=== PATIENT | female | born 1955 | race Caucasian/White ===

== ENCOUNTER 2017-01-20 08:17 | Day surgery (SDC) | payer BC ==
[2017-01-16 18:37] VITALS: BMI 26.6
[2017-01-20] MEDS ORDERED: oxyCODONE HCL 5 MG TABLET PO PRN (11:08)
[2017-01-20] MEDS ORDERED: ONDANSETRON 4 MG/2 ML VIAL IVPUSH PRN (11:08)
[2017-01-20] MEDS ORDERED: PROMETHAZINE HCL 25 MG/1 ML VIAL IVPUSH PRN (11:08)
[2017-01-20] MEDS ORDERED: MIDAZOLAM HCL 2 MG/2 ML SINGLE DOSE VIAL ONE ×3 (11:13→11:26)
[2017-01-20] MEDS ORDERED: LACTATED RINGERS SOLUTION 1,000 ML IV SCH (11:15)
[2017-01-20] MEDS ORDERED: LEVOFLOXACIN 500 MG PREMIX BAG IVPB ONE (11:22)
[2017-01-20] MEDS ORDERED: DEXAMETHASONE SOD PHOSPHATE 4 MG/1 ML VIAL ONE (11:24)
--- NOTE | 2017-01-20 12:25 | OP ---
Operative Note - Note: Pre-Operative Diagnosis: right renal stones Operation: right eswl Findings: 5mm upper pole; 5mm mid-pole; 7mm lower pole stones Post-Operative Diagnosis: Same as Pre-op Surgeon: Michael Bess Anesthesia: General Operative Report Dictated: Yes
[2017-01-20 12:54] VITALS: TEMP 98.2
[2017-01-20 15:06] VITALS: BP 140/77; PULSE 70
--- NOTE | 2017-01-21 00:52 | OP ---
DATE OF OPERATION: 01/20/2017 PREOPERATIVE DIAGNOSIS: Right renal stone. POSTOPERATIVE DIAGNOSIS: Right renal stone. PROCEDURE: Extracorporeal shock wave lithotripsy. ATTENDING SURGEON: Lan Bess M.D. ANESTHESIA: General. OPERATION: Patient was brought in the operating room, placed in a supine position on the operating room table. Ultrasonography and fluoroscopy were performed. A 5-mm upper, 5-mm mid, and 7-mm lower pole stones were localized in the right kidney. Patient was then given antibiotics and general anesthesia. Extracorporeal shock wave lithotripsy was then performed, 1000 impulses at 20 joules of power was administered to each of the stones, a total of 3000 impulses was administered. No complications were noted. DISPOSITION: Disposition of the patient to the recovery room. LAN NIEVES M.D. [id number]
== END 2017-01-20 15:07 | disposition home or self-care (01) ==
LOC: JASU-SURG 08:17
PROVIDERS: ATTEND Urology
PROC: 0TF3XZZ Fragmentation in Right Kidney Pelvis, External Approach (ICD-10-PCS; principal; 2017-01-20 09:45)
DX: N20.0 Calculus of kidney (principal)
CPT/HCPCS: 94760

== ENCOUNTER 2018-09-28 09:28 | Day surgery (SDC) | payer OTHER ==
[2018-09-24 14:39] VITALS: BMI 26.6
[2018-09-28] MEDS ORDERED: MIDAZOLAM HCL 2 MG/2 ML SINGLE DOSE VIAL ONE (11:09)
[2018-09-28] MEDS ORDERED: PROPOFOL 20 ML ONE (11:09)
--- NOTE | 2018-09-28 12:43 | OP ---
Operative Note - Note: Operative Date: 09/28/18 Pre-Operative Diagnosis: Left renal stone Operation: Left ESWL Findings: 7 mm mid pole & 7 mm low pole Left renal stone Estimated Blood Loss (mls): 0
[2018-09-28 13:38] VITALS: BP 127/60; PULSE 72; TEMP 97.9
--- NOTE | 2018-09-28 19:31 | OP ---
DATE OF OPERATION: 09/28/2018 PREOPERATIVE DIAGNOSIS: Left renal stone. POSTOPERATIVE DIAGNOSIS: Left renal stone. PROCEDURE: Left extracorporeal shock wave lithotripsy. ATTENDING: Lan Nieves MD ANESTHESIA: General. DESCRIPTION OF OPERATION: Patient was brought in the operating room and placed in supine position on the operating room table. Ultrasonography and fluoroscopy were performed. Two stones each measuring 7 mm were identified. One was in the mid pole, and the second was in the lower pole. It was decided to maximize the benefit of the procedure by focusing on 1 stone. The mid-pole stone was identified as the stone to treat. Next, 2500 impulses at 20 joules of power were administered to the stone. No complications were noted. The patient tolerated the procedure very well. LAN NIEVES M.D. [id number]
== END 2018-09-28 12:50 | disposition home or self-care (01) ==
LOC: JASU-SURG 09:28
PROVIDERS: ATTEND Urology
PROC: 0TF4XZZ Fragmentation in Left Kidney Pelvis, External Approach (ICD-10-PCS; principal; 2018-09-28 11:00)
DX: N20.0 Calculus of kidney (principal)

== ENCOUNTER 2019-06-21 08:08 | Day surgery (SDC) | payer OTHER ==
[2019-06-18 09:16] VITALS: BMI 27.0
[2019-06-21] MEDS ORDERED: MIDAZOLAM HCL 2 MG/2 ML SINGLE DOSE VIAL ONE (10:59)
--- NOTE | 2019-06-21 11:14 | OP ---
Operative Note - Note: Operative Date: 06/21/19 Operation: Left renal stone Findings: 5 mm lower pole left real stone Post-Operative Diagnosis: Same as Pre-op Surgeon: Michael Bess Anesthesia: Fractional Estimated Blood Loss (mls): 0 Drains, Volume Out (mls): 0 Operative Report Dictated: Yes
[2019-06-21 12:31] VITALS: BP 119/81; PULSE 61; TEMP 97.9
--- NOTE | 2019-06-21 16:40 | OP ---
DATE OF OPERATION: 06/21/2019 PREOPERATIVE DIAGNOSIS: Left renal stone. POSTOPERATIVE DIAGNOSIS: Left renal stone. PROCEDURE: Left extracorporeal shock-wave lithotripsy. ATTENDING: Lan Nieves MD ANESTHESIA: Fractional. OPERATION: The patient was brought in the operating room, placed in supine position on the operating room table. Ultrasonography and fluoroscopy were performed. A 5-mm left lower pole stone was identified. Anesthesia was then administered as well as preoperative antibiotics. Shock-wave lithotripsy was then started, 2500 impulses 17 joules of power were administered to the stone, with excellent fragmentation of the stone under real-time ultrasonography and fluoroscopy. No complications were noted. The patient tolerated the procedure very well. LAN NIEVES M.D. [id number]
== END 2019-06-21 12:10 | disposition home or self-care (01) ==
LOC: JASU-SURG 08:08
PROVIDERS: ATTEND Urology
PROC: 0TF4XZZ Fragmentation in Left Kidney Pelvis, External Approach (ICD-10-PCS; principal; 2019-06-21 10:15)
DX: N20.0 Calculus of kidney (principal)

== ENCOUNTER 2020-06-06 05:57 | Day surgery (SDC) | payer OTHER ==
--- OUTSIDE RECORDS SUMMARY | 2020-06-06 06:01 | XMS ---
:1955 Author Organization [facility] Support Name Relationship Address Phone UE Unavailable Unavailable Unavailable TRISTA VALLADARES AUNT [address] [facility] [phone] [place] [id number] ARIAN GARCIA FRIEND [address] [facility] [place] [id number] Re-disclosure Warning The records that you are about to access may contain information from federally- assisted alcohol or drug abuse programs. If such information is present, then the following federally mandated warning applies: This information has been disclosed to you from records protected by federal confidentiality rules (42 CFR part 2). The federal rules prohibit you from making any further disclosure of this information unless further disclosure is expressly permitted by the written consent of the person to whom it pertains or as otherwise permitted by 42 CFR part 2. A general authorization for the release of medical or other information is NOT sufficient for this purpose. The Federal rules restrict any use of the information to criminally investigate or prosecute any alcohol or drug abuse patient.The records that you are about to access may contain highly sensitive health information, the redisclosure of which is protected by Article 27-F of the [facility] Public Health law. If you continue you may haveaccess to information: Regarding HIV / AIDS; Provided by facilities licensed or operated by the [facility] Office of Mental Health; or Provided by the [facility] Office for People With Developmental Disabilities. If such information is present, then the following [facility] mandated warning applies: This information has been disclosed to you from confidential records which are protected by state law. State law prohibits you from making any further disclosure of this information without the specific written consent of the person to whom it pertains, or as otherwise permitted by law. Any unauthorized further disclosure in violation of state law may result in a fine or custodial sentence or both. A general authorization for the release of medical or other information is NOT sufficient authorization for further disclosure. Insurance Providers Payer name Policy type Policy ID Covered Covered republican's Policy P chapito / Coverage republican ID relationship to [place] Inf ormation type [place] MEDICARE [id number] SP [id number] J50 [employer] [id number] 300 HEALTH NON CAP MEDICARE [id number] SP [id number] J50 [employer] [id number] 300 HEALTH NON CAP Results ID Date Data Source [id number] 06/02/2020 10:04:00 AM EDT [facility] Name Value Range Interpretation Description Data Sup porting Code Source(s) Document(s ) SARS [facility] coronavirus 2 RNA This lab was ordered by CORRINA MEEKS and reported by [facility]. Procedure
[2020-06-06] MEDS ORDERED: CELECOXIB 200 MG CAPSULE PO ONE (06:28)
[2020-06-06] MEDS ORDERED: BUPIVACAINE HCL/PF 0.5% (5 MG/ML) 30 ML VIAL IJ ONE (06:31)
[2020-06-06] MEDS ORDERED: MIDAZOLAM HCL 2 MG/2 ML SINGLE DOSE VIAL ONE ×2 (06:31→07:23)
[2020-06-06 06:35] VITALS: BMI 28.8
[2020-06-06] MEDS ORDERED: ceFAZolin SODIUM 1 GM VIAL ONE (07:09)
[2020-06-06] MEDS ORDERED: PROPOFOL 20 ML ONE ×3 (07:16)
[2020-06-06] MEDS ORDERED: ONDANSETRON 4 MG/2 ML VIAL IVPUSH PRN (08:03)
[2020-06-06] MEDS ORDERED: MAG HYDROX/AL HYDROX/SIMETH 30 ML UNIT-DOSE CUP PO PRN (08:03)
--- NOTE | 2020-06-06 08:03 | HP ---
Satellite [facility] - Chief Complaint Chief Complaint: right knee pain - Past Medical History Allergies/Adverse Reactions: Allergies Allergy/AdvReac Type Severity Reaction Status Date / Time No Known Drug Allergies Allergy Verified 05/30/20 09:08 - Current Medications Current Medications: Home Medications Medication Instructions Recorded Amlodipine Besylate 10 mg PO HS 06/21/16 Aspirin [ASA -] 81 mg PO DAILY 06/21/16 Ergocalciferol (Vitamin D2) 2,000 unit PO DAILY 06/21/16 [Vitamin D2] Metoprolol Succinate [Toprol XL -] 25 mg PO DAILY 06/21/16 Hydrocodone/Ibuprofen 1 each PO TID PRN 05/29/20 [Hydrocodone-Ibuprofen 7.5-200] Atorvastatin Ca [Lipitor] 20 mg PO HS 05/30/20 Calcium Carbonate [Calcium] 500 mg PO BID 05/30/20 Cyanocobalamin [Vitamin B12 -] 1,000 mcg PO ASDIR 05/30/20 Satellite Physical Exam - Physical Examination Vital Signs: Vital Signs Period Temp Pulse Resp BP Sys/Dailey Pulse Ox Last 24 Hr 98.8 F 70 18 133/90 99 General Appearance: Well Nourished, Well Developed, Alert & Oriented x3 ENT: Clear Lung: Normal air movement Extremities: Other (right knee- + swelling, + ttp medially, decr rom, nvi, xrays show grade 4 medial compartment djd) Neurological: Intact, Alert, Oriented Satellite Impression/Plan - Impression/Plan Impression: right knee medial djd Operative Procedure: right medial vidal ukr Date to be Performed: 06/06/20
[2020-06-06] MEDS ORDERED: LACTATED RINGERS SOLUTION 1,000 ML IV SCH (08:15)
[2020-06-06] MEDS ORDERED: TRANEXAMIC ACID 1000 MG/10 ML VIAL ONE (08:34)
[2020-06-06] MEDS ORDERED: BUPIVICAINE 0.25%/MORPH PF/KETOROLAC - 51ML DISP.SYRINGE IA ONE ×3 (09:15→10:00)
[2020-06-06] MEDS ORDERED: TRANEXAMIC ACID 1000 MG/10 ML VIAL IVPUSH ONE (09:30)
[2020-06-06] MEDS ORDERED: CEFAZOLIN 2 GM in DEXTROSE 5%-WATER - 50 ML IVPB ONE (09:30)
--- NOTE | 2020-06-06 09:39 | OP ---
Operative Note - Note: Operative Date: 06/06/20 (nohemi) Pre-Operative Diagnosis: right knee medial djd Operation: right medial vidal ukr Post-Operative Diagnosis: Same as Pre-op Surgeon: Saeid Schwab Rn Clinical Appeals: Wyatt Hawkins Anesthesia: Spinal, Local Specimens Removed: bone fragments Estimated Blood Loss (mls): 50
[2020-06-06] MEDS: MULTIVITAMINS (DAILY MVI) TABLET (FP) PO SCH (10:49)
[2020-06-06] MEDS: PANTOPRAZOLE 40 MG TABLET PO SCH (10:49)
[2020-06-06] MEDS ORDERED: traMADol HCL 50 MG TABLET PO PRN (11:13)
[2020-06-06] MEDS ORDERED: oxyCODONE HCL 5 MG TABLET PO PRN (11:13)
[2020-06-06] MEDS: ACETAMINOPHEN 325 MG TABLET (FP) PO SCH ×3 (12:56→23:33)
--- NOTE | 2020-06-06 14:01 | SPEC ---
DATE OF OPERATION: 06/06/2020 PREOPERATIVE DIAGNOSIS: Degenerative joint disease, right knee. POSTOPERATIVE DIAGNOSIS: Degenerative joint disease, right knee. PROCEDURE: Right medial unicompartmental knee replacement with robotic-assisted navigation (MAKOplasty) and patelloplasty. SURGICAL ATTENDING: Saeid Schwab MD NIGHT NURSE: EVA Ruby ANESTHESIA: Regional and spinal. CLOSURE: Medial unicompartmental SAMEER components with a 5 femur, 5 tibia, and a 9 polyethylene; No. 1 Vicryl, fascia; 0 and 2-0, subcutaneous; 3-0 Monocryl subcuticular with skin glue for skin; 4-0 undyed Vicryl for pin sites. ESTIMATED BLOOD LOSS: Negligible. COMPLICATIONS: None. CONDITION: To recovery in stable condition. DESCRIPTION OF OPERATIVE PROCEDURE: Patient was taken to the operating room on June 06, 2020. Spinal and regional anesthesia was administered by the anesthesiologist. IV Kefzol and TXA were administered prophylactically prior to the case. A well-padded pneumatic tourniquet was placed on the right proximal thigh. The right lower extremity was prepped and draped in the usual sterile fashion. A 6- to 8-cm longitudinal incision over the medial side of the patella from mid patella to the tibial tubercle was incised and was deepened using Bovie cautery. An arthrotomy was then made just medial to the patellar tendon and the patella. Subperiosteal dissection was done on the anteromedial proximal tibia all the way back to the MCL. Partial fat pad excision was performed, exposing the medial compartment. Checkpoint was malleable at both the femur and the tibia. Using 2 stab incisions in the femur 1 handbreadth above the patella on the femur and 2 stab incisions 1 handbreadth below the tibial tubercle on the tibia, 2 threaded pins were drilled in parallel fashion from anterior to posterior, going through the proximal cortex and engaging the 2nd but not through the 2nd cortex. To these threaded pins were fastened navigation rays, 1 on the femur and 1 on the tibia. The knee was then registered with the navigation device with the center of the rotation of the hip, medial and lateral malleoli, and multiple points both on the femur and on the tibia. Excellent registration of less than 0.5 mm was obtained on both to ensure adequate registration. The navigation device ensured us to "pop the bubbles" both on the femur and the tibia and that was performed and passed registration. The knee was then thoroughly inspected to remove all osteophytes both on the femur and the tibia. Also, osteophytes on the trochlea and on the surface of the patella were removed as well. The knee was then stressed with valgus stress at 0, 30, 60, 90, and 120 degrees of flexion. This propagated a looseness/tightness graft. The virtual positions of the components were then optimized to ensure an excellent graft. The tracking also was optimized by manipulating the virtual position to ensure that the femoral component articulated with the central portion of the tibial component. The robot was then brought into the field and was registered. The robot was used to bur the bone on both the femur and the tibia as to the specifications of the components. The trial components were then applied on both the femur and the tibia with an appropriate polyethylene insert. The knee was taken through a range of motion and found to have full extension, full flexion, with excellent stability. Stressing the graft revealed an excellent looseness/tightness graft with the trial components in place. The trial components were removed. The knee was thoroughly irrigated with a copious amount of antibiotic irrigation. The real components were then cemented in using modern generation cement techniques with antibiotic cement and pressurization. After the cement was hardened, the knee was thoroughly inspected to remove out all excess cement. The real polyethylene insert was then clipped into place. Range of motion and stability were again assessed to be as they were with the trials. At this time, the pins and the checkpoints were removed. The knee was again thoroughly irrigated. The arthrotomy was closed with No. 1 Vicryl, 0 and 2-0 subcutaneous, and 3-0 Monocryl subcuticular with skin glue for the skin, 4-0 undyed Vicryl for the pin sites. Sterile pressure dressing was placed over the knee. Patient awakened from anesthesia and transferred to recovery in stable condition. No complications. Estimated blood loss negligible. X-rays postoperatively revealed excellent position of the components. Richard [id number]
--- NOTE | 2020-06-06 14:57 | SPEC ---
DATE OF OPERATION: 06/06/2020 PREOPERATIVE DIAGNOSIS: Degenerative joint disease, right knee. POSTOPERATIVE DIAGNOSIS: Degenerative joint disease, right knee. PROCEDURE: Right medial unicompartmental knee replacement with robotic-assisted navigation (MAKOplasty) and patelloplasty. SURGICAL ATTENDING: Saeid Schwab MD MANAGER OF OPERATIONS: EVA Ruby ANESTHESIA: Regional and spinal. CLOSURE: Medial unicompartmental SAMEER components with a 5 femur, 5 tibia, and an 9 polyethylene; No. 0 Vicryl fascia; 2-0, subcutaneous, 3-0 Monocryl; subcuticular with skin glue; 4-0 undyed Vicryl for pin sites. ESTIMATED BLOOD LOSS: Negligible. COMPLICATIONS: None. CONDITION: To recovery in stable condition. DESCRIPTION OF OPERATIVE PROCEDURE: Patient was taken to the operating room on June 06, 2020. Spinal and regional anesthesia was administered by the anesthesiologist. IV Kefzol and TXA were administered prophylactically prior to the case. A well-padded pneumatic tourniquet was placed on the right proximal thigh. The right lower extremity was prepped and draped in the usual sterile fashion. A 6- to 8-cm longitudinal incision over the medial side of the patella from mid patella to the tibial tubercle was incised and was deepened using Bovie cautery. An arthrotomy was then made just medial to the patellar tendon and the patella. Subperiosteal dissection was done on the anteromedial proximal tibia all the way back to the MCL. Partial fat pad excision was performed, exposing the medial compartment. Checkpoint was malleable at both the femur and the tibia. Using 2 stab incisions in the femur 1 handbreadth above the patella on the femur and 2 stab incisions 1 handbreadth below the tibial tubercle on the tibia, 2 threaded pins were drilled in parallel fashion from anterior to posterior, going through the proximal cortex and engaging the 2nd but not through the 2nd cortex. To these threaded pins were fastened navigation rays, 1 on the femur and 1 on the tibia. The knee was then registered with the navigation device with the center of the rotation of the hip, medial and lateral malleoli, and multiple points both on the femur and on the tibia. Excellent registration of less than 0.5 mm was obtained on both to ensure adequate registration. The navigation device ensured us to "pop the bubbles" both on the femur and the tibia and that was performed and passed registration. The knee was then thoroughly inspected to remove all osteophytes both on the femur and the tibia. Also, osteophytes on the trochlea and on the surface of the patella were removed as well. The knee was then stressed with valgus stress at 0, 30, 60, 90, and 120 degrees of flexion. This propagated a looseness/tightness graft. The virtual positions of the components were then optimized to ensure an excellent graft. The tracking also was optimized by manipulating the virtual position to ensure that the femoral component articulated with the central portion of the tibial component. The robot was then brought into the field and was registered. The robot was used to bur the bone on both the femur and the tibia as to the specifications of the components. The trial components were then applied on both the femur and the tibia with an appropriate polyethylene insert. The knee was taken through a range of motion and found to have full extension, full flexion, with excellent stability. Stressing the graft revealed an excellent looseness/tightness graft with the trial components in place. The trial components were removed. The knee was thoroughly irrigated with a copious amount of antibiotic irrigation. The real components were then cemented in using modern generation cement techniques with antibiotic cement and pressurization. After the cement was hardened, the knee was thoroughly inspected to remove out all excess cement. The real polyethylene insert was then clipped into place. Range of motion and stability were again assessed to be as they were with the trials. At this time, the pins and the checkpoints were removed. The knee was again thoroughly irrigated. The arthrotomy was closed with No. 1 Vicryl, 0 and 2-0 subcutaneous, and 3-0 Monocryl subcuticular with skin glue for the skin, 4-0 undyed Vicryl for the pin sites. Sterile pressure dressing was placed over the knee. Patient awakened from anesthesia and transferred to recovery in stable condition. No complications. Estimated blood loss negligible. X-rays postoperatively revealed excellent position of the components. Richard [id number]
[2020-06-06] MEDS: CEFAZOLIN 2 GM/D5W 2 GM/50 ML ML IVPB SCH ×2 (16:24→23:33)
[2020-06-06] MEDS ORDERED: metoPROLOL SUCCINATE 25 MG TAB.SR.24H (FP) PO SCH (18:00)
[2020-06-06] MEDS ORDERED: PT OWN MED DRAWER 7, Y5N ONE (19:28)
[2020-06-06] MEDS: SENNOSIDES/DOCUSATE COMBO (SENNA PLUS) TABLET (UD) PO SCH (21:24)
[2020-06-06] MEDS: oxyCODONE HCL 5 MG TABLET PO PRN (21:27)
[2020-06-06] MEDS ORDERED: amLODIPine BESYLATE 10 MG TABLET (FP) PO SCH (22:00)
[2020-06-06] MEDS ORDERED: ATORVASTATIN CA 20 MG TABLET (FP) PO SCH (22:00)
[2020-06-07] MEDS: ACETAMINOPHEN 325 MG TABLET (FP) PO SCH ×2 (06:07→12:44)
--- NOTE | 2020-06-07 07:50 | CONSULT ---
Consult - Past Medical History Cardio/Vascular: Yes: HTN, Hyperlipdemia Musculoskeletal: Yes: Chronic low back pain, Osteoarthritis - Alcohol/Substance Use Hx Alcohol Use: Yes (SOCIAL) - Smoking History Smoking history: Never smoked Have you smoked in the past 12 months: No Home Medications - Allergies Allergies/Adverse Reactions: Allergies Allergy/AdvReac Type Severity Reaction Status Date / Time No Known Drug Allergies Allergy Verified 05/30/20 09:08 - Home Medications Home Medications: Ambulatory Orders Amlodipine Besylate 10 mg PO HS 06/21/16 Ergocalciferol (Vitamin D2) [Vitamin D2] 2,000 unit PO DAILY 06/21/16 Metoprolol Succinate [Toprol XL -] 25 mg PO DAILY 06/21/16 Hydrocodone/Ibuprofen [Hydrocodone-Ibuprofen 7.5-200] 1 each PO TID PRN 05/29/20 Atorvastatin Ca [Lipitor] 20 mg PO HS 05/30/20 Calcium Carbonate [Calcium] 500 mg PO BID 05/30/20 Cyanocobalamin [Vitamin B12 -] 1,000 mcg PO ASDIR 05/30/20 Aspirin [ASA -] 325 mg PO DAILY@0800 tablet 06/06/20 Oxycodone HCl/Acetaminophen [Percocet 5-325 mg Tablet -] 1 - 2 tab PO Q6H #50 tab MDD 8 06/06/20 Review of Systems - Review of Systems HENT: reports: No Symptoms Neck: reports: No Symptoms Cardiovascular: reports: No Symptoms Respiratory: reports: No Symptoms Gastrointestinal: reports: No Symptoms Musculoskeletal: reports: Joint Pain Physical Exam Vital Signs: Vital Signs Temperature 98.7 F 06/07/20 06:00 Pulse Rate 71 06/07/20 06:00 Respiratory Rate 18 06/07/20 06:00 Blood Pressure 124/73 06/07/20 06:00 O2 Sat by Pulse Oximetry (%) 98 06/07/20 07:36 Cardiovascular: Yes: Regular Rate and Rhythm Respiratory: Yes: Regular, CTA Bilaterally Gastrointestinal: Yes: Normal Bowel Sounds, Soft. No: Tenderness Edema: No Wound/Incision: Yes: Dressing Dry and Intact Problem List - Problems (1) HTN (hypertension) Assessment/Plan: same meds Code(s): I10 - ESSENTIAL (PRIMARY) HYPERTENSION (2) HLD (hyperlipidemia) Assessment/Plan: on statin Code(s): E78.5 - HYPERLIPIDEMIA, UNSPECIFIED (3) S/P knee surgery Assessment/Plan: per ortho Operative Date: 06/06/20 (nohemi) Pre-Operative Diagnosis: right knee medial djd Operation: right medial vidal ukr Post-Operative Diagnosis: Same as Pre-op Surgeon: Saeid Schwab Ged Teacher: Wyatt Hawkins
[2020-06-07] MEDS ORDERED: ASPIRIN 325 MG TABLET PO SCH (08:00)
[2020-06-07] MEDS: SENNOSIDES/DOCUSATE COMBO (SENNA PLUS) TABLET (UD) PO SCH (09:16)
[2020-06-07] MEDS: PANTOPRAZOLE 40 MG TABLET PO SCH (09:16)
[2020-06-07] MEDS: MULTIVITAMINS (DAILY MVI) TABLET (FP) PO SCH (09:16)
[2020-06-07] MEDS: oxyCODONE HCL 5 MG TABLET PO PRN (09:17)
--- NOTE | 2020-06-07 09:18 | PN ---
Progress Note (short form) - Note Progress Note: Ortho Pt seen and examined s/p right medial vidal ukr pod #1 Selected Entries 06/07/20 06:00 Temperature 98.7 F Pulse Rate 71 Respiratory 18 Rate Blood Pressure 124/73 dressing c/d/i, rom 0-70, calf soft, nt nvi a/p PT dvt ppx pain control d/c home today f/u in 1 week
--- NOTE | 2020-06-07 09:21 | DS ---
Physical Examination Vital Signs: Vital Signs Temperature 98.7 F 06/07/20 06:00 Pulse Rate 71 06/07/20 06:00 Respiratory Rate 18 06/07/20 06:00 Blood Pressure 124/73 06/07/20 06:00 O2 Sat by Pulse Oximetry (%) 98 06/07/20 07:36 Discharge Summary Problems reviewed: Yes Reason For Visit: OSTEOARTHRITIS Current Active Problems HLD (hyperlipidemia) (Acute) HTN (hypertension) (Acute) S/P knee surgery (Acute) Procedures: Principal: right medial vidal ukr Hospital Course: admitted for elective right medial vidal ukr, post-op per protocol, stable for d/c Condition: Good - Instructions Diet, Activity, Other Instructions: Post-op Instructions-Partial Knee Replacement Call the office for a follow-up appointment in 1 week - [phone] Aspirin 325mg daily for 6 weeks. Pain medication was sent into your pharmacy. Apply Graduated Compression Stockings (TEDs) to both lower extremities- remove daily for hygiene ONLY Apply Sequential Compression Device (SCDs) to both Lower extremities remove for PT and hygiene ONLY Apply cold packs to affected area for 15 minutes every 2 hours. Physical Therapist will come to your home for the first 5 days. You will be set up with outpatient PT at your first post-operative visit. Patient may ambulate as tolerated-encourage self care (at least every 2-3 hours while awake) with walker or cane Maintain Aquacel (waterproof) dressing to operative wound (will be removed by surgeon at first office visit) Shower with Aquacel dressing in place-if Aquacel integrity compromised, remove and apply dry sterile dressing and notify Orthopedist. DO NOT SHOWER unless Orthopedists approves without Aquacel dressing CONTACT THE OFFICE FOR ANY CHANGE IN YOUR CONDITION (for example-fever greater than 102 degrees, excessive bleeding from operative site, purulent drainage, severe swelling or pain) GO TO THE EMERGENCY ROOM IF THERE IS A MEDICAL EMERGENCY Knee Precautions: * Keep a rolled towel under affected heel while in bed or chair (to keep knee in extension) * Keep affected leg elevated except during mealtimes * DO NOT PLACE PILLOW UNDER AFFECTED KNEE * If you have any questions, please do not hesitate to call the office - [phone]. Referrals: Saeid Schwab MD [Staff Physician] - Disposition: VNS/HOME HEALTH CARE - Home Medications Comprehensive Discharge Medication List: Ambulatory Orders Amlodipine Besylate 10 mg PO HS 06/21/16 Ergocalciferol (Vitamin D2) [Vitamin D2] 2,000 unit PO DAILY 06/21/16 Metoprolol Succinate [Toprol XL -] 25 mg PO DAILY 06/21/16 Hydrocodone/Ibuprofen [Hydrocodone-Ibuprofen 7.5-200] 1 each PO TID PRN 05/29/20 Atorvastatin Ca [Lipitor] 20 mg PO HS 05/30/20 Calcium Carbonate [Calcium] 500 mg PO BID 05/30/20 Cyanocobalamin [Vitamin B12 -] 1,000 mcg PO ASDIR 05/30/20 Aspirin [ASA -] 325 mg PO DAILY@0800 tablet 06/06/20 Oxycodone HCl/Acetaminophen [Percocet 5-325 mg Tablet -] 1 - 2 tab PO Q6H #50 tab MDD 8 06/06/20
--- NOTE | 2020-06-07 09:45 | PN ---
Progress Note (short form) - Note Progress Note: Anesthesia postop note 65 y/o F s/p spinal anesthesia and PNB for vidal knee replacement POD#1, vss, aaox3, pain well controlled, sensory motor intact distally. No anesthesia complications.
[2020-06-07] MEDS ORDERED: PT OWN MED DRAWER 7, Y5N ONE (13:38)
[2020-06-07 14:58] VITALS: BP 122/70; PULSE 65; TEMP 98.6
== END 2020-06-07 14:30 | disposition home health service (06) ==
LOC: FASUSAT 05:57 → FM/S 12:36 → FASUSAT 06-07 14:30
PROVIDERS: ATTEND Orthopaedic Surgery
PROC: 8E0YXBZ Computer Assisted Procedure of Lower Extremity (ICD-10-PCS; 2020-06-06)
PROC: 8E0Y0CZ Robotic Assisted Procedure of Lower Extremity, Open Approach (ICD-10-PCS; 2020-06-06)
PROC: 0SRC0L9 Replacement of Right Knee Joint with Medial Unicondylar Synthetic Substitute, Cemented, Open Approach (ICD-10-PCS; principal; 2020-06-06 08:32)
DX: M17.11 Unilateral primary osteoarthritis, right knee (principal); I10 Essential (primary) hypertension; E78.5 Hyperlipidemia, unspecified; M54.5 Low back pain; G89.29 Other chronic pain
CPT/HCPCS: 20985; 27446; C1776; S2900; 73560-TC-RT-FY; 94760; 97010-GP; 97116-GP; 97162-GP

== ENCOUNTER 2022-10-23 04:19 | Day surgery (SDC) | payer OTHER ==
[2022-10-18 14:09] VITALS: BMI 27.0
[2022-10-23] MEDS ORDERED: PROPOFOL 60 ML ONE (07:46)
[2022-10-23] MEDS ORDERED: ROPIVACAINE HCL 0.5% 30ML VIAL ONE (07:46)
[2022-10-23] MEDS ORDERED: MIDAZOLAM HCL 2 MG/2 ML SINGLE DOSE VIAL ONE (07:46)
[2022-10-23] MEDS ORDERED: LIDOCAINE HCL 2% (20ML MULTI-DOSE VIAL) ONE (07:47)
[2022-10-23] MEDS ORDERED: ceFAZolin SODIUM 1 GM VIAL IVPB ONE (08:25)
[2022-10-23] MEDS ORDERED: oxyCODONE HCL 5 MG TABLET PO PRN (09:47)
[2022-10-23] MEDS ORDERED: ONDANSETRON 4 MG/2 ML VIAL IVPUSH PRN (09:47)
[2022-10-23] MEDS ORDERED: LACTATED RINGERS SOLUTION 1,000 ML IV SCH (10:00)
[2022-10-23 11:06] VITALS: RESP 18
[2022-10-23 12:28] VITALS: BP 129/77; PULSE 69; TEMP 97.7
== END 2022-10-23 12:15 | disposition home or self-care (01) ==
LOC: JASU-SURG 04:19
PROVIDERS: ATTEND Orthopaedic Surgery
PROC: 0RCK4ZZ Extirpation of Matter from Left Shoulder Joint, Percutaneous Endoscopic Approach (ICD-10-PCS; 2022-10-23)
PROC: 0LB24ZZ Excision of Left Shoulder Tendon, Percutaneous Endoscopic Approach (ICD-10-PCS; 2022-10-23)
PROC: 0PBB4ZZ Excision of Left Clavicle, Percutaneous Endoscopic Approach (ICD-10-PCS; 2022-10-23)
PROC: 0RBK4ZZ Excision of Left Shoulder Joint, Percutaneous Endoscopic Approach (ICD-10-PCS; principal; 2022-10-23 08:00)
DX: M75.42 Impingement syndrome of left shoulder (principal); M19.012 Primary osteoarthritis, left shoulder; M24.012 Loose body in left shoulder; M75.102 Unspecified rotator cuff tear or rupture of left shoulder, not specified as traumatic; S43.492A Other sprain of left shoulder joint, initial encounter; X58.XXXA Exposure to other specified factors, initial encounter; Y93.9 Activity, unspecified; Y92.9 Unspecified place or not applicable
CPT/HCPCS: 94760

== ENCOUNTER 2023-10-21 04:30 | Day surgery (SDC) | payer OTHER ==
[2023-10-15 12:57] VITALS: BMI 28.8
[2023-10-21] MEDS ORDERED: LIDOCAINE HCL 2% JELLY 11 ML TP ONE (11:43)
[2023-10-21] MEDS ORDERED: KETOROLAC TROMETHAMINE 30 MG/1 ML VIAL ONE (11:45)
[2023-10-21 12:02] VITALS: TEMP 98
[2023-10-21] MEDS ORDERED: ACETAMINOPHEN INJECTION 100 ML IVPB ONE (12:23)
[2023-10-21 13:08] VITALS: BP 106/56; PULSE 60; RESP 17
[2023-10-21] MEDS: ACETAMINOPHEN 1000 MG/100 ML BAG IVPB ONE (13:13)
== END 2023-10-21 13:30 | disposition home or self-care (01) ==
LOC: JASU-ENDO 04:30
PROVIDERS: ATTEND Internal Medicine Gastroenterology
PROC: 0DBM8ZX Excision of Descending Colon, Via Natural or Artificial Opening Endoscopic, Diagnostic (ICD-10-PCS; 2023-10-21)
PROC: 06LY7CC Occlusion of Hemorrhoidal Plexus with Extraluminal Device, Via Natural or Artificial Opening (ICD-10-PCS; 2023-10-21)
PROC: 0DBK8ZX Excision of Ascending Colon, Via Natural or Artificial Opening Endoscopic, Diagnostic (ICD-10-PCS; principal; 2023-10-21 10:00)
DX: K64.8 Other hemorrhoids (principal); D12.4 Benign neoplasm of descending colon; K63.5 Polyp of colon; K57.30 Diverticulosis of large intestine without perforation or abscess without bleeding
CPT/HCPCS: 88305-TC; J0131